=== PATIENT | male | born 1960 | race Caucasian/White ===

== ENCOUNTER 2020-01-24 12:04 | Inpatient (IN) | payer BC, OTHER ==
[~2020-01-24] VITALS: Ht 180.3 cm; Wt 120.0 kg
[2020-01-24] VITALS (16 sets, daily range): BP systolic 109–160; BP diastolic 58–95
[~2020-01-24 12:04] MED LIST changes: -HYDROcodone/acetaminophen 10/325mg tab PO PRN; -HYDROmorphone 1 mg/ml syringe IV PRN; -MESSAGE TO PHARMACY PO ONE; -acetaminophen 325mg tablet PO PRN; -bisacodyl 10mg suppository rectal RC PRN; -ceFAZolin 1GM/D5W- ADD-VANTAGE 50 ML IV SCH; -dextrose 50%-water 50ml dispensing syringe IV PRN; -dextrose ORAL solution 15 GM/59 ML bottle PO PRN; -diphenhydrAMINE 25mg capsule PO PRN; -glucagon, human recombinant 1mg kit SUBCUT PRN; -insulin Lispro (HumaLOG) vial - multi-dose SQ SCH; -insulin glargine (Lantus) pen - multi-dose SQ SCH; -magnesium hydroxide 30ml (MOM) UD suspension PO PRN; -ondansetron/PF 4mg/2ml inj IV PRN; -potassium Cl 20mEq in NS 1,000 ML IV SCH; -sennosides 8.6mg tablet PO SCH
--- NOTE | 2020-01-24 12:30 | NUR ---
PT NEEDS URGENT SURGERY. COVID SCREENING QUESTIONS ASKED AND PT DENIES ANY SYMPTOMS OR EXPOSURE.
[2020-01-24] MEDS ORDERED: famotidine 20mg tablet PO ONE (13:20)
[2020-01-24] MEDS ORDERED: ringers solution, lacted 1,000 ML IV ONE (13:20)
[2020-01-24 13:54] LABS: MEAN CORPUSCULAR HEMOGLOBIN 31.9 PG (27.0-31.0); MEAN CORPUSCULAR HGB CONC 33.5 g/dL (33.0-36.5); MEAN CORPUSCULAR VOLUME 95.4 FL (78-98); MEAN PLATELET VOLUME 7.5 FL (7.4-10.4); PRE OP HEMATOCRIT 41.9 % (42.0-52.0); PRE OP PLATELET COUNT 515 X10'3 (140-440); RED BLOOD COUNT 4.39 X10'6 (4.70-6.10); RED CELL DISTRIBUTION WIDTH 14.7 % (11.5-14.5)
[2020-01-24 14:02] LABS: PRE OP INR 1.2 INR; PRE OP PROTIME 11.7 SECONDS (9.0-12.0)
[2020-01-24 14:12] LABS: ALBUMIN 3.6 G/DL (3.4-5.0); ALBUMIN/GLOBULIN RATIO 0.7 (1.1-1.5); ALKALINE PHOSPHATASE 45 IU/L (46-116); BLOOD UREA NITROGEN 28 MG/DL (7-18); BUN/CREATININE RATIO 14.3 (5.4-32.0); CHLORIDE 98 MMOL/L (99-107); CREATININE 1.96 MG/DL (0.60-1.10); PRE OP ALT 36 U/L (30-65); PRE OP ANION GAP 10 (8-16); PRE OP AST 17 U/L (10-37); PRE OP BILIRUB, TOTAL 0.7 MG/DL (0.0-1.0); PRE OP GLUCOSE 80 MG/DL (70-104); PRE OP POTASSIUM 4.8 MMOL/L (3.4-5.1); PRE OP SODIUM 133 MMOL/L (135-145); TOTAL PROTEIN 8.6 G/DL (6.4-8.2); eGFR 35 ML/MIN
[2020-01-24 14:14] LABS: ANISOCYTOSIS 1+; PLATELET ESTIMATE INCREASED; TOTAL CELLS COUNTED 100
[2020-01-24] MEDS ORDERED: HYDROcodone/acetaminophen 10/325mg tab PO ONE (14:20)
[2020-01-24] MEDS ORDERED: ringers solution, lacted 1,000 ML IV SCH (14:49)
[2020-01-24] MEDS ORDERED: proCHLORperazine 10 MG/2 ml inj IV PRN (14:50)
[2020-01-24] MEDS ORDERED: morphine 2 MG/ML inj. syringe IV PRN (14:50)
[2020-01-24] MEDS ORDERED: meperidine/PF 25mg/ml syringe IV PRN ×3 (14:50)
[2020-01-24] MEDS ORDERED: morphine 4 MG/ML inj SYRINge IV PRN (14:50)
[2020-01-24] MEDS ORDERED: ondansetron/PF 4mg/2ml inj IV PRN ×2 (14:50→18:25)
[2020-01-24 14:53] LABS: HEMOGLOBIN A1C 6.3 % (4.5-6.2)
[2020-01-24] MEDS ORDERED: MIDAZolam 5mg/5ml vial ONE (14:57)
[2020-01-24] MEDS ORDERED: fentaNYL /PF 50mcg/ml 5ml ampule ONE (14:57)
[2020-01-24] MEDS ORDERED: propofol inj 20 ML IV ONE (14:58)
[2020-01-24] MEDS ORDERED: LIDOcaine 2% (20mg/ml) 5ml vial ONE (14:58)
[2020-01-24] MEDS ORDERED: ROPIVAcaine 0.5% (5mg/ml) 30ml vial ONE (14:59)
[2020-01-24] MEDS ORDERED: dexamethasone sod phosphate 10mg/ml inj ONE (15:22)
[2020-01-24] MEDS ORDERED: sevoflurane 250ml liquid IH ONE (15:22)
[2020-01-24] MEDS ORDERED: ondansetron/PF 4mg/2ml inj ONE (16:02)
[2020-01-24] MEDS ORDERED: CEFAZOLIN IV ONE (16:20)
[2020-01-24] MEDS ORDERED: NORMAL SALINE IV ONE (16:20)
[2020-01-24] MEDS ORDERED: VANCOMYCIN 1,500MG inj. 1,500 MG in normal saline 500ml IV soln 300 ML IV ONE (16:20)
[2020-01-24] MEDS ORDERED: vancomycin 1,000mg inj ONE ×2 (16:44)
[2020-01-24] MEDS ORDERED: tobramycin sulfate 1.2gm vial TP ONE (16:45)
--- NOTE | 2020-01-24 17:40 | NUR ---
Received from OR via ORTHO BED , accompanied by Anesthesiologist SAURAV and report given by Anesthesiolgist. PATIENT WITH 20G PIV IN RIGHT UE RUNNING LR AT 100. VSS. DENIES PAIN . LEFT SHOULDER DRESSING IS SPOTTED AT ANTERIOR SIDE BUT IS CDI AT THIS TIME. + RADIAL PULSE TO LEFT UE. PATIENT WITH SCDS BILATERALLY. 10L MASK ON WITH 98% SATURATIONS. Addendum: 01/24/20 at 1757 by Oleg Valdivia RN, RN Amended: Links added.
[2020-01-24] MEDS ORDERED: acetaminophen 325mg tablet PO PRN (18:25)
[2020-01-24] MEDS ORDERED: diphenhydrAMINE 25mg capsule PO PRN ×2 (18:25)
[2020-01-24] MEDS ORDERED: glucagon, human recombinant 1mg kit SUBCUT PRN (18:25)
[2020-01-24] MEDS ORDERED: MESSAGE TO PHARMACY PO ONE (18:25)
[2020-01-24] MEDS ORDERED: magnesium hydroxide 30ml (MOM) UD suspension PO PRN (18:25)
[2020-01-24] MEDS ORDERED: dextrose 50%-water 50ml dispensing syringe IV PRN ×2 (18:25)
[2020-01-24] MEDS ORDERED: bisacodyl 10mg suppository rectal RC PRN (18:25)
[2020-01-24] MEDS ORDERED: dextrose ORAL solution 15 GM/59 ML bottle PO PRN ×2 (18:25)
--- NOTE | 2020-01-24 18:40 | NUR ---
ALL CRITERIA FOR TRANSFER TO THE FLOOR HAS BEEN ACHIEVED. REPORT GIVEN AND ALL QUESTIONS ANSWERED, VSS. BED LOW 2 RAILS UP, CALL LIGHT PRESENT AND PATIENT HOOKED UP TO ALL LINES AND VSS. PATIENTS RN PRESENT TO ACCEPT CARE. RN MARIN PRESENT TO ACCEPT CARE. BEDSIDE REPORT GIVEN TO RN. ALL QUESTIONS ANSWERED. VSS. NO DRAINAGE FROM LEFT SHOULDER DRESSING. PROPPED LEFT ELBOW ON A PILLOW TO PROTECT ULNAR NERVE. + RADIAL PRESENT TO LEFT UE. FINGERS PWD. PATIENT STILL IN NO PAIN AT TIME OF TRANSFER. Addendum: 01/24/20 at 1904 by Oleg Valdivia RN, RN Amended: Links added.
[2020-01-24] MEDS: insulin glargine (Lantus) pen - multi-dose SQ SCH (21:00)
[2020-01-24] MEDS: sennosides 8.6mg tablet PO SCH (21:26)
[2020-01-24] MEDS: potassium Cl 20mEq in NS 1,000 ML IV SCH (21:27)
[2020-01-25] MEDS: ceFAZolin 1GM/D5W- ADD-VANTAGE 50 ML IV SCH ×4 (00:02→23:20)
[2020-01-25 02:00] VITALS: BP 120/67
[2020-01-25] MEDS: HYDROcodone/acetaminophen 10/325mg tab PO PRN ×5 (05:16→23:20)
[2020-01-25 06:00] VITALS: BP 131/62
[2020-01-25] MEDS: modafinil 100mg tablet PO SCH (08:00)
[2020-01-25] MEDS: celeCOXIB 100mg capsule PO SCH (09:44)
[2020-01-25] MEDS: aripiprazole 5mg tablet PO SCH (09:44)
[2020-01-25] MEDS: aspirin 81mg tablet.DR PO SCH (09:45)
[2020-01-25] MEDS: montelukast 10mg tablet PO SCH (09:45)
[2020-01-25] MEDS: duloxetine 30mg CAPSULE.DR PO SCH (09:45)
[2020-01-25] MEDS: pantoprazole 40mg Tablet.DR PO SCH (09:45)
[2020-01-25] MEDS: levoTHYROXINE 100mcg tablet PO SCH (09:46)
[2020-01-25] MEDS: lisinopril 5mg tablet PO SCH (09:49)
[2020-01-25] MEDS: fenofibrate 145mg tablet PO SCH (09:49)
[2020-01-25 10:00] VITALS: BP 115/63
--- NOTE | 2020-01-25 10:02 | NUR ---
DM consult: Pt with A1c 6.3%, DM education not warranted at this time. Will continue to follow. Addendum: 01/25/20 at [address] Amended: Links added.
[2020-01-25] MEDS: potassium Cl 20mEq in NS 1,000 ML IV SCH ×2 (10:10→23:23)
[2020-01-25] MEDS: insulin Lispro (HumaLOG) vial - multi-dose SQ SCH ×2 (13:50→19:07)
[2020-01-25 14:00] VITALS: BP 144/80
[2020-01-25] MEDS: HYDROmorphone 1 mg/ml syringe IV PRN (15:23)
[2020-01-25 18:00] VITALS: BP 123/64
--- NOTE | 2020-01-25 18:47 | NUR ---
Patient in room ORTHO 4016. I have received report from VINITA SMITH and had the opportunity to ask questions and assume patient care.
[2020-01-25] MEDS: insulin glargine (Lantus) pen - multi-dose SQ SCH (20:33)
[2020-01-25] MEDS: sennosides 8.6mg tablet PO SCH (20:33)
[2020-01-25 22:00] VITALS: BP 122/68
[2020-01-26] MEDS: HYDROcodone/acetaminophen 10/325mg tab PO PRN ×5 (05:08→22:09)
--- NOTE | 2020-01-26 06:28 | NUR ---
Problems reprioritized. Patient report given, questions answered & plan of care reviewed with FRANCISCA SMITH.
--- NOTE | 2020-01-26 06:34 | NUR ---
Patient in room ORTHO 4016. I have received report from Rena and had the opportunity to ask questions and assume patient care.
[2020-01-26] MEDS: modafinil 100mg tablet PO SCH (08:00)
[2020-01-26] MEDS: duloxetine 30mg CAPSULE.DR PO SCH (08:23)
[2020-01-26] MEDS: levoTHYROXINE 100mcg tablet PO SCH (08:23)
[2020-01-26] MEDS: aspirin 81mg tablet.DR PO SCH (08:23)
[2020-01-26] MEDS: montelukast 10mg tablet PO SCH (08:23)
[2020-01-26] MEDS: aripiprazole 5mg tablet PO SCH (08:23)
[2020-01-26] MEDS: pantoprazole 40mg Tablet.DR PO SCH (08:23)
[2020-01-26] MEDS: fenofibrate 145mg tablet PO SCH (08:23)
[2020-01-26] MEDS: ceFAZolin 1GM/D5W- ADD-VANTAGE 50 ML IV SCH (08:24)
[2020-01-26] MEDS: lisinopril 5mg tablet PO SCH (08:24)
[2020-01-26] MEDS: celeCOXIB 100mg capsule PO SCH (08:24)
[2020-01-26] MEDS: insulin Lispro (HumaLOG) vial - multi-dose SQ SCH ×3 (08:39→18:36)
--- NOTE | 2020-01-26 11:34 | NUR ---
Student documentation: I have reviewed all interventions, assessments performed and documented by Cynthia JAIME
[2020-01-26] MEDS: ceFAZolin 2gm in dextrose, iso 50 ML IV SCH (16:19)
--- NOTE | 2020-01-26 16:50 | NUR ---
Student documentation: I have reviewed assessment performed and documented by Rosio Mcginnis SN [facility] .
[2020-01-26 18:00] VITALS: BP 138/72
--- NOTE | 2020-01-26 18:13 | NUR ---
Problems reprioritized. Patient report given, questions answered & plan of care reviewed with
--- NOTE | 2020-01-26 20:09 | NUR ---
Patient in room ORTHO 4016. I have received report from FRANCISCA SMITH AT 1800 and had the opportunity to ask questions and assume patient care.
[2020-01-26] MEDS: insulin glargine (Lantus) pen - multi-dose SQ SCH (21:47)
[2020-01-26] MEDS: sennosides 8.6mg tablet PO SCH (21:48)
[2020-01-26 22:00] VITALS: BP 135/68
[2020-01-27] MEDS: ceFAZolin 2gm in dextrose, iso 50 ML IV SCH ×2 (00:17→07:18)
[2020-01-27] MEDS: HYDROcodone/acetaminophen 10/325mg tab PO PRN ×2 (02:40→07:08)
[2020-01-27 06:00] VITALS: BP 153/85
--- NOTE | 2020-01-27 06:09 | NUR ---
Problems reprioritized. Patient report given, questions answered & plan of care reviewed with FRANCISCA SMITH.
[2020-01-27 06:17] LABS: CREATININE 1.79 MG/DL (0.60-1.10); eGFR 39 ML/MIN
[2020-01-27] MEDS: aspirin 81mg tablet.DR PO SCH (07:08)
[2020-01-27] MEDS: levoTHYROXINE 100mcg tablet PO SCH (07:10)
[2020-01-27] MEDS: lisinopril 5mg tablet PO SCH (07:10)
[2020-01-27] MEDS: fenofibrate 145mg tablet PO SCH (07:10)
[2020-01-27] MEDS: duloxetine 30mg CAPSULE.DR PO SCH (07:10)
[2020-01-27] MEDS: celeCOXIB 100mg capsule PO SCH (07:11)
[2020-01-27] MEDS: pantoprazole 40mg Tablet.DR PO SCH (07:11)
[2020-01-27] MEDS: aripiprazole 5mg tablet PO SCH (07:11)
[2020-01-27] MEDS: montelukast 10mg tablet PO SCH (07:11)
[2020-01-27] MEDS: insulin Lispro (HumaLOG) vial - multi-dose SQ SCH ×3 (09:14→19:03)
[2020-01-27] MEDS: modafinil 100mg tablet PO SCH (09:19)
[2020-01-27] MEDS ORDERED: oxyCODONE/APAP 5-325mg tablet PO PRN (09:50)
[2020-01-27] MEDS: oxyCODONE/APAP 10/325mg tablet PO PRN ×3 (10:16→21:34)
[2020-01-27 11:00] VITALS: BP 142/82
[2020-01-27] MEDS: ceFAZolin 1GM/D5W- ADD-VANTAGE 50 ML IV SCH (17:02)
[2020-01-27 18:00] VITALS: BP 154/81
--- NOTE | 2020-01-27 18:25 | NUR ---
Patient in room ORTHO 4016. I have received report from LUIS Guerrero and had the opportunity to ask questions and assume patient care.
--- NOTE | 2020-01-27 18:41 | NUR ---
Problems reprioritized. Patient report given, questions answered & plan of care reviewed with
[2020-01-27] MEDS: sennosides 8.6mg tablet PO SCH (21:27)
[2020-01-27] MEDS: insulin glargine (Lantus) pen - multi-dose SQ SCH (21:29)
[2020-01-27 22:00] VITALS: BP 141/80
[2020-01-28] MEDS: ceFAZolin 1GM/D5W- ADD-VANTAGE 50 ML IV SCH ×4 (00:33→23:30)
[2020-01-28 06:00] VITALS: BP 147/64
--- NOTE | 2020-01-28 06:14 | NUR ---
Problems reprioritized. Patient report given, questions answered & plan of care reviewed with LUIS Guerrero.
[2020-01-28] MEDS: oxyCODONE/APAP 10/325mg tablet PO PRN ×4 (06:32→23:29)
[2020-01-28] MEDS: fenofibrate 145mg tablet PO SCH (07:54)
[2020-01-28] MEDS: aripiprazole 5mg tablet PO SCH (07:54)
[2020-01-28] MEDS: duloxetine 30mg CAPSULE.DR PO SCH (07:54)
[2020-01-28] MEDS: pantoprazole 40mg Tablet.DR PO SCH (07:54)
[2020-01-28] MEDS: celeCOXIB 100mg capsule PO SCH (07:54)
[2020-01-28] MEDS: aspirin 81mg tablet.DR PO SCH (07:54)
[2020-01-28] MEDS: levoTHYROXINE 100mcg tablet PO SCH (07:55)
[2020-01-28] MEDS: montelukast 10mg tablet PO SCH (07:55)
[2020-01-28] MEDS: lisinopril 5mg tablet PO SCH (07:58)
[2020-01-28] MEDS: insulin Lispro (HumaLOG) vial - multi-dose SQ SCH ×3 (09:22→19:29)
[2020-01-28 10:00] VITALS: BP 122/85
[2020-01-28] MEDS: modafinil 100mg tablet PO SCH (11:12)
[2020-01-28 18:00] VITALS: BP 124/69
--- NOTE | 2020-01-28 18:00 | NUR ---
Patient in room ORTHO 4016. I have received report from Yolanda SMITH and had the opportunity to ask questions and assume patient care.
--- NOTE | 2020-01-28 18:20 | NUR ---
Problems reprioritized. Patient report given, questions answered & plan of care reviewed with Mague SMITH.
[2020-01-28] MEDS: sennosides 8.6mg tablet PO SCH (21:08)
[2020-01-28] MEDS: insulin glargine (Lantus) pen - multi-dose SQ SCH (21:09)
[2020-01-28 22:00] VITALS: BP 160/83
[2020-01-29] MEDS: nafcillin inj 2 GM in normal saline 100ml IV soln 100 ML IV SCH ×3 (00:33→07:08)
[2020-01-29] MEDS: oxyCODONE/APAP 10/325mg tablet PO PRN (04:29)
[2020-01-29 06:00] VITALS: BP 125/78
--- NOTE | 2020-01-29 06:14 | NUR ---
Problems reprioritized. Patient report given, questions answered & plan of care reviewed with Loida SMITH.
--- NOTE | 2020-01-29 06:20 | NUR ---
received report from dian haile
[2020-01-29] MEDS: aripiprazole 5mg tablet PO SCH (07:05)
[2020-01-29] MEDS: duloxetine 30mg CAPSULE.DR PO SCH (07:05)
[2020-01-29] MEDS: celeCOXIB 100mg capsule PO SCH (07:05)
[2020-01-29] MEDS: pantoprazole 40mg Tablet.DR PO SCH (07:06)
[2020-01-29] MEDS: aspirin 81mg tablet.DR PO SCH (07:06)
[2020-01-29] MEDS: modafinil 100mg tablet PO SCH (07:06)
[2020-01-29] MEDS: levoTHYROXINE 100mcg tablet PO SCH (07:07)
[2020-01-29] MEDS: montelukast 10mg tablet PO SCH (07:07)
[2020-01-29] MEDS: lisinopril 5mg tablet PO SCH (07:07)
[2020-01-29] MEDS: fenofibrate 145mg tablet PO SCH (07:07)
[2020-01-29] MEDS: HYDROmorphone 1 mg/ml syringe IV PRN (07:20)
--- NOTE | 2020-01-29 07:24 | NUR ---
scanner not scanning meds into [employer], checked meds prior to admin, continue to monitor
[2020-01-29 07:40] LABS: ALANINE AMINOTRANSFERASE 32 U/L (12-78); ALBUMIN 2.9 G/DL (3.4-5.0); ALBUMIN/GLOBULIN RATIO 0.6 (1.1-1.5); ALKALINE PHOSPHATASE 63 IU/L (46-116); ANION GAP 7 (8-16); ASPARTATE AMINO TRANSFERASE 19 U/L (10-37); BILIRUBIN,TOTAL 0.6 MG/DL (0.1-1.0); BLOOD UREA NITROGEN 39 MG/DL (7-18); BUN/CREATININE RATIO 19.8 (5.4-32.0); CALCIUM 10.4 MG/DL (8.5-10.1); CHLORIDE 94 MMOL/L (99-107); CREATININE 1.97 MG/DL (0.60-1.10); GLUCOSE 175 MG/DL (70-104); POTASSIUM 5.1 MMOL/L (3.5-5.1); SODIUM 129 MMOL/L (135-145); TOTAL CARBON DIOXIDE 28.1 MMOL/L (24-32); TOTAL PROTEIN 7.7 G/DL (6.4-8.2); eGFR 35 ML/MIN
[2020-01-29] MEDS: ceFAZolin 1GM/D5W- ADD-VANTAGE 50 ML IV SCH (08:56)
--- NOTE | 2020-01-29 08:58 | NUR ---
[facility] INFORMATION: REF: [id number] LOT: [id number] EXP: 09/04/2020
[2020-01-29] MEDS: insulin Lispro (HumaLOG) vial - multi-dose SQ SCH (09:30)
[2020-01-29 10:00] VITALS: BP 142/71
--- NOTE | 2020-01-29 11:16 | NUR ---
pt d/c with instructions understanding of instructions and w/all belongings to private vehicle to go to home and f/u w/pcp
== END 2020-01-29 10:50 | disposition home IV services (08) | DRG 857 ==
LOC: PAS 12:04 → PAS IN 12:05 → UNDOADMIN 12:05 → EDSTATUS 16:00 → PAS IN 16:09 → ORTHO 4S 16:09 → PAS IN 18:52 → ORTHO 4S 18:52
PROVIDERS: ADMIT Orthopaedic Surgery; ATTEND Orthopaedic Surgery
PROC: 3E0U029 Introduction of Other Anti-infective into Joints, Open Approach (ICD-10-PCS; 2020-01-24)
PROC: 5A09357 Assistance with Respiratory Ventilation, Less than 24 Consecutive Hours, Continuous Positive Airway Pressure (ICD-10-PCS; 2020-01-24)
PROC: 3E0T3BZ Introduction of Anesthetic Agent into Peripheral Nerves and Plexi, Percutaneous Approach (ICD-10-PCS; 2020-01-24)
PROC: 0LB20ZZ Excision of Left Shoulder Tendon, Open Approach (ICD-10-PCS; principal; 2020-01-24 15:22)
PROC: 5A09357 Assistance with Respiratory Ventilation, Less than 24 Consecutive Hours, Continuous Positive Airway Pressure (ICD-10-PCS; 2020-01-26)
PROC: 02HV33Z Insertion of Infusion Device into Superior Vena Cava, Percutaneous Approach (ICD-10-PCS; 2020-01-29)
PROC: B548ZZA Ultrasonography of Superior Vena Cava, Guidance (ICD-10-PCS; 2020-01-29)
DX: T81.40XA Infection following a procedure, unspecified, initial encounter (principal); M00.9 Pyogenic arthritis, unspecified; M60.001 Infective myositis, unspecified left arm; E03.9 Hypothyroidism, unspecified; E11.22 Type 2 diabetes mellitus with diabetic chronic kidney disease; E78.5 Hyperlipidemia, unspecified; Y83.8 Other surgical procedures as the cause of abnormal reaction of the patient, or of later complication, without mention of misadventure at the time of the procedure; B95.61 Methicillin susceptible Staphylococcus aureus infection as the cause of diseases classified elsewhere; I12.9 Hypertensive chronic kidney disease with stage 1 through stage 4 chronic kidney disease, or unspecified chronic kidney disease; F32.9 Major depressive disorder, single episode, unspecified; G47.33 Obstructive sleep apnea (adult) (pediatric); K21.9 Gastro-esophageal reflux disease without esophagitis; N18.9 Chronic kidney disease, unspecified; Z85.72 Personal history of non-Hodgkin lymphomas; Z90.81 Acquired absence of spleen; Z92.21 Personal history of antineoplastic chemotherapy; Z92.3 Personal history of irradiation; Y92.89 Other specified places as the place of occurrence of the external cause
CPT/HCPCS: 36415; 36573; 80053; 82565; 82948; 83036; 84443; 85007; 85025; 85610; 85651; 85730; 86140; 87070; 87075; 87077; 87081; 87186; 93005; A4215; A4565; A4618; A6222; A6253; A6449; A7000; C1713; G0378; J0690; J1100; J1170; J1815; J2001; J2250; J2405; J2704; J2795; J3010; J3260; J3370; J3480; J7120

== ENCOUNTER → 2020-01-24 | Outpatient (CLI) | payer BC, OTHER ==
[~2020-01-24] MED LIST: ARIP5TAB14 PO; ASPI-611 PO; CELE200C PO; DULA1.5P SQ; DULO-31 PO; DULO60CA45 PO; FENO145T38 PO; GLIM1TAB PO; HYDR-4353 PO; HYDROcodone/acetaminophen 10/325mg tab PO PRN; HYDROmorphone 1 mg/ml syringe IV PRN; INSU10VI SQ; LANTUS SUBCUT; LEVO100T78 PO; LISI-604 PO; MESSAGE TO PHARMACY PO ONE; METF-99 PO; MODA100T31 PO; MONT10TA21 PO; OMEG-86 PO; OMEP20CA15 PO; PIOG45TA5 PO; PRAV40TA3 PO; TEST5GEL2 TOP; acetaminophen 325mg tablet PO PRN; bisacodyl 10mg suppository rectal RC PRN; ceFAZolin 1GM/D5W- ADD-VANTAGE 50 ML IV SCH; dextrose 50%-water 50ml dispensing syringe IV PRN; dextrose ORAL solution 15 GM/59 ML bottle PO PRN; diphenhydrAMINE 25mg capsule PO PRN; glucagon, human recombinant 1mg kit SUBCUT PRN; insulin Lispro (HumaLOG) vial - multi-dose SQ SCH; insulin glargine (Lantus) pen - multi-dose SQ SCH; magnesium hydroxide 30ml (MOM) UD suspension PO PRN; ondansetron/PF 4mg/2ml inj IV PRN; potassium Cl 20mEq in NS 1,000 ML IV SCH; sennosides 8.6mg tablet PO SCH
[2020-01-24 13:58] LABS: LYMPHOCYTES,BODY FLUID 5 %; MONOCYTES,BODY FLUID 3 %; NEUTROPHILS,BODY FLUID 92 %
[2020-01-24 13:59] LABS: BFAPPEAR CLOUDY
[2020-01-24 14:02] LABS: BF RBC COUNT 3125 /CU MM; BF WBC COUNT 63125 /CU MM (0-1000); BFCOLOR YELLOW; BFVOLUME 8 ML
== END | disposition home or self-care (01) ==
LOC: LAB SPEC 09:26
PROVIDERS: ATTEND Orthopaedic Surgery
DX: S41.002A Unspecified open wound of left shoulder, initial encounter (principal); X58.XXXA Exposure to other specified factors, initial encounter; Y93.89 Activity, other specified; Y92.89 Other specified places as the place of occurrence of the external cause; Y99.8 Other external cause status
CPT/HCPCS: 87070; 87075; 87077; 87186; 89051; J1815; J3480; J0690